=== PATIENT | female | born 1960 | race Caucasian/White ===

== ENCOUNTER 2020-05-14 14:28 | Emergency (ER) | payer OTHER ==
[~2020-05-14] VITALS: Ht 162.6 cm; Wt 68.0 kg
[2020-05-14 14:53] VITALS: Ht 162.6 cm; Wt 68.0 kg
[2020-05-14 15:43] VITALS: BP 137/86
== END 2020-05-14 16:05 | disposition home or self-care (01) ==
LOC: ED 14:28
DX: S93.402A Sprain of unspecified ligament of left ankle, initial encounter (principal); Z88.0 Allergy status to penicillin; Z88.6 Allergy status to analgesic agent; W18.39XA Other fall on same level, initial encounter; Y93.89 Activity, other specified; Y92.89 Other specified places as the place of occurrence of the external cause; Y99.0 Civilian activity done for income or pay

== ENCOUNTER 2020-05-19 12:48 | Emergency (ER) | payer OTHER ==
[~2020-05-19] VITALS: Ht 162.6 cm; Wt 68.0 kg
[2020-05-19 12:58] VITALS: BP 132/84; Ht 162.6 cm; Wt 68.0 kg
== END 2020-05-19 15:34 | disposition home or self-care (01) ==
LOC: ED 12:48
DX: M25.562 Pain in left knee (principal); Z88.0 Allergy status to penicillin; Z88.6 Allergy status to analgesic agent